=== PATIENT | male | born 2000 | race Caucasian/White ===

== ENCOUNTER 2018-12-21 08:19 | Day surgery (SDC) | payer OTHER ==
[~2018-12-21] VITALS: Ht 180.3 cm; Wt 60.1 kg
[~2018-12-21 08:19] MED LIST: None at this time
[2018-12-21] MEDS ORDERED: LACTATED RINGERS 1,000 ML IV SCH (08:39)
[2018-12-21] MEDS ORDERED: OxyconTIN ER 20 MG TAB.ER PO ONE (09:00)
[2018-12-21] MEDS ORDERED: DIAZEPAM 5 MG TABLET PO ONE (09:00)
[2018-12-21] MEDS ORDERED: ACETAMINOPHEN 500 MG TABLET PO ONE (09:00)
[2018-12-21] MEDS ORDERED: GABAPENTIN 300 MG CAPSULE PO ONE (09:00)
[2018-12-21 09:02] VITALS: BP 114/73
[2018-12-21] MEDS ORDERED: FENTANYL PF 100 MCG/2ML ONE (09:36)
[2018-12-21] MEDS ORDERED: MIDAZOLAM 1 MG/ML, 2ML ONE (09:36)
[2018-12-21] MEDS ORDERED: BUPIVACAINE/PF 0.25% ONE (10:05)
[2018-12-21] MEDS ORDERED: EPINEPHRINE 1 MG/ML, 1ML ONE (10:05)
[2018-12-21] MEDS ORDERED: BUPIVACAINE/PF-EPI 0.25% 1:200K INFIL ONE (10:52)
[2018-12-21] MEDS ORDERED: MIDAZOLAM 1 MG/ML, 2ML IV PRN (11:00)
[2018-12-21] MEDS ORDERED: ONDANSETRON 2MG/ML, 2ML IV PRN (11:00)
[2018-12-21] MEDS ORDERED: PROMETHAZINE 25 MG/ML, 1ML IV PRN (11:00)
[2018-12-21] MEDS ORDERED: MEPERIDINE/PF 25MG/0.5ML IVPush PRN (11:00)
[2018-12-21] MEDS ORDERED: FENTANYL PF 100 MCG/2ML IV PRN (11:00)
[2018-12-21] MEDS ORDERED: SCOPOLAMINE PATCH, 1.5MG PATCH.TD72 TD PRN (11:00)
[2018-12-21] MEDS ORDERED: OXYcodone 5 MG/5 ML ORAL.SOL UDC PO PRN (11:00)
[2018-12-21] MEDS ORDERED: HYDROmorphone 2 MG/ML, 1ML IVPush PRN (11:00)
[2018-12-21] MEDS ORDERED: ONDANSETRON 2MG/ML, 2ML ONE ×2 (11:01→15:00)
[2018-12-21] MEDS ORDERED: PROPOFOL 10 MG/ML, 20ML ONE (11:01)
[2018-12-21] MEDS ORDERED: CEFAZOLIN 1,000 MG ONE ×2 (11:01→15:00)
[2018-12-21] MEDS ORDERED: MEPERIDINE/PF 25MG/ML,1ML ONE (11:59)
[2018-12-21] MEDS ORDERED: SUCCINYLCHOLINE 20 MG/ML, 10ML ONE (15:00)
[2018-12-21] MEDS ORDERED: KETOROLAC 30 MG/1 ML ONE (15:00)
[2018-12-21] MEDS ORDERED: ROCURONIUM 10MG/ML,5ML ONE (15:00)
[2018-12-21] MEDS ORDERED: DEXAMETHASONE 4 MG/ML, 1ML ONE (15:00)
== END 2018-12-21 13:20 | disposition home or self-care (01) ==
LOC: OUT 08:19
PROVIDERS: ATTEND Surgery
DX: L05.91 Pilonidal cyst without abscess (principal); Z72.89 Other problems related to lifestyle
CPT/HCPCS: 11772; 88304; J0171; J0330; J0690; J1100; J1885; J2175; J2250; J2405; J2704; J3010; J3490; J7120